=== PATIENT | male | born 1940 | race Caucasian/White ===

== ENCOUNTER 2017-04-05 16:35 | Inpatient (IN) ==
[2017-04-05] MEDS: APIXABAN 5 MG TABLET PO SCH (19:54)
[2017-04-05] MEDS: Psyllium 1 PACKET POWD.PACK PO SCH (19:57)
[2017-04-05] MEDS: ALFUZOSIN 10 MG PO SCH (19:57)
[2017-04-06 05:13] LABS: Basophils % 0.1 %; Eosinophils # 0.4 K/mcL (0.0-0.6); Eosinophils % 3.7 %; Hematocrit 48.5 % (35.3-44.9); Hemoglobin 17.3 g/dL (11.5-15.4); Immature Granulocytes % 0.4 % (0-4); Lymphocytes # 2.1 K/mcL (0.6-4.6); Lymphocytes % 21.7 %; Mean Corpuscular HGB Conc 35.7 g/dL (31.6-35.5); Mean Corpuscular Hemoglobin 29.4 pg (28.0-33.3); Mean Corpuscular Volume 82.5 fL (83.0-100.0); Mean Platelet Volume 10.4 fL (9.4-12.4); Monocytes # 1.1 K/mcL (0.0-1.3); Monocytes % 11.6 %; Neutrophils # 5.9 K/mcL (1.6-8.9); Platelet Count 210 K/mcL (140-400); Red Blood Count 5.88 M/mcL (3.82-4.97); Red Cell Distribution Width 14.7 % (11.5-14.5); Segmented Neutrophils % 62.5 %
[2017-04-06 05:19] LABS: INR 1.5; Prothrombin Time 16.8 Seconds (9.4-12.1)
[2017-04-06 05:23] LABS: Activated Partial Thrombo Time 36.7 Seconds (26.0-36.0)
[2017-04-06 05:27] LABS: BUN/Creatinine Ratio 13 (6-26); Blood Urea Nitrogen 14 mg/dL (7-20); Calcium 9.1 mg/dL (8.6-10.8); Carbon Dioxide 27 mEq/L (19-29); Chloride 104 mEq/L (98-109); Glucose 111 mg/dL (70-99); Osmolality,Calculated 291 (280-300); Potassium 3.5 mEq/L (3.5-4.5); Sodium 140 mEq/L (136-145); eGFR For African Americans > 60 (> 60); eGFR For Non-African Americans 51 (> 60)
[2017-04-06] MEDS: APIXABAN 5 MG TABLET PO SCH ×2 (08:40→20:48)
[2017-04-06] MEDS: Finasteride 5 MG TABLET PO SCH (08:40)
--- NOTE | 2017-04-06 15:09 | Internal Med History&Physical ---
Date of Encounter: 04/06/17 Time of Encounter: 15:07 Assessment and Plan (1) CVA (cerebral vascular accident) Current visit: Yes Status: Acute Patient is here for rehabilitation status post CVA.x Internal Medicine - H&P: HPI Chief complaint: Patient transferred here for CVA. Admitted From: Hospital to Hospital Transfer Plans for Post Hospital Care: Home History of present illness: Mr. FERNÁNDEZ is a 76 year old male Past Med Surg Social Fam HX - Past Medical History Medical history: atrial fibrillation, CVA, hyperlipidemia, hypertension, other Psychiatric history: no psych history - Social History Smoking Status: Former smoker Smokeless Tobacco Status: No Alcohol use: none Drug use: none - Family History Mother History Unknown: Yes Adopted: No Living Status: Age at : 28 Cause of : CHILDBIRTH Internal Medicine - H&P: Meds Alfuzosin HCl 10 mg PO HS 04/05/17 [History] Apixaban [Eliquis] 5 mg PO BID 04/05/17 [History] Atorvastatin [Lipitor] 40 mg PO HS 04/05/17 [History] Diltiazem [Cardizem] 30 mg PO Q6HR 04/05/17 [History] Finasteride [Proscar] 5 mg PO DAILY 04/05/17 [History] Metoprolol [Lopressor] 25 mg PO BID 04/05/17 [History] Omeprazole [PriLOSEC] 20 mg PO BIDAC 04/05/17 [History] Psyllium [Metamucil Fiber Singles Packet] 1 packet PO HS 04/05/17 [History] Allergies No Known Allergies Allergy (Verified 04/05/17 16:42) All Systems PM: A 10-system review of systems was performed and is negative for pertinent findings except as documented above in the HPI. - Constitutional Vitals: Temp Pulse Resp BP Pulse Ox 98.1 F 70 16 115/72 94 04/06/17 13:12 04/06/17 13:33 04/06/17 13:33 04/06/17 13:33 04/06/17 13:33 General appearance: Present: pleasant, no acute distress - Head Head exam: Present: atraumatic, normal inspection, normocephalic - Neck Neck exam general surgery: Present: supple, trachea midline. Absent: lymphadenopathy - Respiratory Respiratory exam: Present: CTAB. Absent: accessory muscle use, rales, rhonchi, wheezes - Cardiovascular Cardiovascular exam: Present: RRR, +S1, +S2. Absent: diastolic murmur, gallop, rubs, systolic murmur - GI/Abdominal GI/Abdominal exam: Present: normal bowel sounds, soft, no peritoneal signs. Absent: distended, tenderness - Neurological Exam Neurological exam: Present: facial droop (Very minimal changes. I did not see much unevenness) Internal Med - H&P Results - Labs CBC & Chem 7: 04/06/17 05:00 04/06/17 05:00 Labs: Short CBC 04/06/17 Range/Units 05:00 WBC 9.5 (4.3-11.1) K/mcL Hgb 17.3 H (11.5-15.4) g/dL Hct 48.5 H (35.3-44.9) % Plt Count 210 (140-400) K/mcL Neutrophils # 5.9 (1.6-8.9) K/mcL BMP 04/06/17 05:00 Sodium 140 Potassium 3.5 Chloride 104 Carbon Dioxide 27 BUN 14 Creatinine 1.04 Glucose 111 H Calcium 9.1 Lab looks good
--- NOTE | 2017-04-06 16:12 | Electrocardiograph Report ---
[place] [id number] Test Date: 2017-04-06 Pat Name: FELIX FERNÁNDEZ Department: 2001 Room: 109 Gender: M Floral Merchandiser: Phil : 1940 Requested By: Kavon Parikh Order Number: [id number] Reading MD: Medina Clinton Measurements Intervals [place] Rate: 83 P: WA: 0 QRS: -19 QRSD: 102 T: 163 QT: 352 QTc: 392 Interpretive Statements ATRIAL FIBRILLATION NONSPECIFIC ST & T-WAVE ABNORMALITY Electronically Signed On 04-06-2017 16:10:44 EDT by Medina Clinton
[2017-04-06] MEDS: Psyllium 1 PACKET POWD.PACK PO SCH (20:50)
[2017-04-06] MEDS: ALFUZOSIN 10 MG PO SCH (20:50)
[2017-04-06] MEDS: Acetaminophen 325 MG TABLET PO PRN (23:16)
[2017-04-07] MEDS: Finasteride 5 MG TABLET PO SCH (08:40)
[2017-04-07] MEDS: APIXABAN 5 MG TABLET PO SCH ×2 (08:40→20:57)
[2017-04-07] MEDS: Acetaminophen 325 MG TABLET PO PRN (08:40)
--- NOTE | 2017-04-07 11:24 | Internal Med Progress Note ---
Date of Encounter: 04/07/17 Time of Encounter: 11:22 - Assessment and plan (1) CVA (cerebral vascular accident) Current Visit: Yes Status: Acute Assessment and plan: Patient's here for PT OT TR and speech. Qualifiers: CVA mechanism: thrombosis Precerebral and cerebral artery: middle cerebral artery Laterality of affected vessel: left Qualified Code(s): I63.312 - Cerebral infarction due to thrombosis of left middle cerebral artery - Time Spent With Patient less than 15 minutes - Subjective Interval history: Patient is started with therapy today cooperated. He does have some complaints of vertigo I am going to start some medication for that. I would not doing well - Constitutional Vitals: Temp Pulse Resp BP Pulse Ox 98.4 F 68 16 133/94 96 04/07/17 07:00 04/07/17 07:00 04/07/17 07:00 04/07/17 07:00 04/07/17 07:00 General appearance: Present: pleasant, no acute distress - Head Head exam: Present: atraumatic, normal inspection, normocephalic - Neck Neck exam general surgery: Present: supple, trachea midline. Absent: lymphadenopathy - Respiratory Respiratory exam: Present: CTAB. Absent: accessory muscle use, rales, rhonchi, wheezes - Cardiovascular Cardiovascular exam: Present: RRR, +S1, +S2. Absent: diastolic murmur, gallop, rubs, systolic murmur Internal Medicine: Result - Labs CBC & Chem 7: 04/06/17 05:00 04/06/17 05:00 Labs: Lab is stable - ABG Interpretation ABG results: PT/INR, D-dimer PT 16.8 Seconds (9.4-12.1) H 04/06/17 05:00 Consult Discharge Plan - Plan Referrals: NONE,PCP [Primary Care Provider] -
[2017-04-07] MEDS: Psyllium 1 PACKET POWD.PACK PO SCH (20:57)
[2017-04-07] MEDS: ALFUZOSIN 10 MG PO SCH (20:58)
[2017-04-08] MEDS: Acetaminophen 325 MG TABLET PO PRN ×2 (00:56→20:38)
[2017-04-08] MEDS: Finasteride 5 MG TABLET PO SCH (08:26)
[2017-04-08] MEDS: APIXABAN 5 MG TABLET PO SCH ×2 (08:27→20:36)
--- NOTE | 2017-04-08 11:26 | Internal Med Progress Note ---
Date of Encounter: 04/08/17 Time of Encounter: 11:24 - Assessment and plan (1) CVA (cerebral vascular accident) Current Visit: Yes Status: Acute Assessment and plan: CVA and I think that the vertigo was caused by the CVA. We will see if the Antivert does anything Qualifiers: CVA mechanism: thrombosis Precerebral and cerebral artery: middle cerebral artery Laterality of affected vessel: left Qualified Code(s): I63.312 - Cerebral infarction due to thrombosis of left middle cerebral artery - Time Spent With Patient less than 15 minutes - Subjective Interval history: Patient is started with therapy today cooperated. He does have some complaints of vertigo I am going to start some medication for that. I would not doing well - Constitutional Vitals: Temp Pulse Resp BP Pulse Ox 97.6 F 60 16 134/89 97 04/08/17 07:39 04/08/17 08:27 04/08/17 07:39 04/08/17 07:39 04/08/17 07:39 General appearance: Present: pleasant, no acute distress - Head Head exam: Present: atraumatic, normal inspection, normocephalic - Neck Neck exam general surgery: Present: supple, trachea midline. Absent: lymphadenopathy - Respiratory Respiratory exam: Present: CTAB. Absent: accessory muscle use, rales, rhonchi, wheezes - Cardiovascular Cardiovascular exam: Present: RRR, +S1, +S2. Absent: diastolic murmur, gallop, rubs, systolic murmur - Neurological Exam Neurological exam: Present: CN II-XII intact, oriented X3, no focal deficits. Absent: pronater drift, facial droop, speech deficit Additional comments: Reports no improvement vertigo with the Antivert. Internal Medicine: Result - Labs CBC & Chem 7: 04/06/17 05:00 04/06/17 05:00 Labs: Lab is stable - ABG Interpretation ABG results: PT/INR, D-dimer PT 16.8 Seconds (9.4-12.1) H 04/06/17 05:00 Consult Discharge Plan - Plan Referrals: NONE,PCP [Primary Care Provider] -
[2017-04-08] MEDS: Psyllium 1 PACKET POWD.PACK PO SCH (20:37)
[2017-04-08] MEDS: ALFUZOSIN 10 MG PO SCH (20:37)
[2017-04-09 06:00] LABS: Basophils % 0.1 %; Eosinophils # 0.4 K/mcL (0.0-0.6); Eosinophils % 4.9 %; Hematocrit 46.5 % (37.5-50.1); Hemoglobin 16.3 g/dL (12.9-16.9); Immature Granulocytes % 0.6 % (0-4); Lymphocytes % 22.1 %; Mean Corpuscular HGB Conc 35.1 g/dL (31.6-35.5); Mean Corpuscular Hemoglobin 29.7 pg (28.0-33.3); Mean Corpuscular Volume 84.9 fL (83.0-100.0); Mean Platelet Volume 11.2 fL (9.4-12.4); Monocytes # 1.1 K/mcL (0.0-1.3); Neutrophils # 5.4 K/mcL (1.6-8.9); Platelet Count 190 K/mcL (140-400); Red Blood Count 5.48 M/mcL (4.19-5.50); Red Cell Distribution Width 15.4 % (11.5-14.5); Segmented Neutrophils % 60.3 %
[2017-04-09 06:14] LABS: BUN/Creatinine Ratio 11 (6-26); Blood Urea Nitrogen 11 mg/dL (8-26); Calcium 8.9 mg/dL (8.6-10.8); Carbon Dioxide 26 mEq/L (19-29); Chloride 107 mEq/L (98-109); Glucose 94 mg/dL (70-99); Osmolality,Calculated 291 (280-300); Potassium 3.6 mEq/L (3.5-4.5); Sodium 141 mEq/L (136-145); eGFR For African Americans > 60 (> 60); eGFR For Non-African Americans > 60 (> 60)
[2017-04-09] MEDS: Finasteride 5 MG TABLET PO SCH (08:50)
[2017-04-09] MEDS: APIXABAN 5 MG TABLET PO SCH ×2 (08:50→20:19)
--- NOTE | 2017-04-09 09:38 | Internal Med Progress Note ---
Date of Encounter: 04/09/17 Time of Encounter: 10:24 - Assessment and plan (1) Cerebral infarction involving right cerebellar artery Current Visit: Yes Status: Acute Assessment and plan: 76-year-old gentleman with known history of atrial fibrillation sustained acute right cerebellar infarct with mass effect and is now improved with therapy. He still needs a walker to assist with ambulation and gait belt and standby assistance for safety because of his ataxia and instability of balance. He continues to improve. He has troubles when he bends over such as therapy in the garden. Continue with controlled blood pressure, controlling defibrillation and continue anticoagulation with Eliquis (2) Atrial fibrillation Current Visit: Yes Status: Acute Assessment and plan: Anticoagulated continues with rate controlled atrial fibrillation. He is anticoagulated. He denies any angina or CHF findings. Qualifiers: Atrial fibrillation type: chronic Qualified Code(s): I48.2 - Chronic atrial fibrillation (3) Anticoagulated Current Visit: Yes Status: Acute Assessment and plan: Anticoagulated with Eliquis for his atrial fibrillation and history of cerebellar CVA. No complications noted. (4) Hypertension Current Visit: Yes Status: Chronic Assessment and plan: Long-standing history of hypertension. Blood pressure is controlled. Qualifiers: Hypertension type: essential hypertension Qualified Code(s): I10 - Essential (primary) hypertension (5) Ashton catheter in place on admission Current Visit: Yes Status: Acute Assessment and plan: He has had a Ashton catheter in place since transfer from [facility] and apparently we were told not to remove it. I need to look at his old records to see why this needs to remain. - Subjective Interval history: Patient denies any acute symptoms currently. He denies chest pain, palpitations , irregular heartbeat, nausea, vomiting or GI issues. He has an indwelling Ashton catheter that we were told needs to remain. He thinks is getting better. Therapy reports that he still needs standby assistance and gait belt for balance issues when he is ambulating with his walker. He has difficulties when he is bending over with regards to ataxia. - Constitutional Vitals: Temp Pulse Resp BP Pulse Ox 97.4 F L 69 14 134/93 96 04/09/17 07:34 04/09/17 07:34 04/09/17 07:34 04/09/17 07:34 04/09/17 07:34 General appearance: Present: A&O X 3, pleasant, no acute distress - Respiratory Respiratory exam: Present: CTAB - Cardiovascular Cardiovascular exam: Present: irregular rhythm, +S1, +S2. Absent: systolic murmur Additional comments: Irregularly irregular rhythm with controlled rate - GI/Abdominal GI/Abdominal exam: Absent: tenderness - Extremities Exam Extremities exam: Absent: calf tenderness, pedal edema - Neurological Exam Neurological exam: Present: CN II-XII intact, oriented X3, strengths equal and symetr throughout. Absent: facial droop, speech deficit Additional comments: He has mild ataxia when ambulating. He is using a walker. He takes wide-based turns. Internal Medicine: Result - Labs CBC & Chem 7: 04/09/17 05:35 04/09/17 05:35 Labs: Short CBC 04/09/17 Range/Units 05:35 WBC 9.0 (4.3-11.1) K/mcL Hgb 16.3 (12.9-16.9) g/dL Hct 46.5 (37.5-50.1) % Plt Count 190 (140-400) K/mcL Neutrophils # 5.4 (1.6-8.9) K/mcL BMP 04/09/17 05:35 Sodium 141 Potassium 3.6 Chloride 107 Carbon Dioxide 26 BUN 11 Creatinine 0.98 Glucose 94 Calcium 8.9 Labs have been reviewed and basically unremarkable. - ABG Interpretation ABG results: PT/INR, D-dimer PT 16.8 Seconds (9.4-12.1) H 04/06/17 05:00 Consult Discharge Plan - Plan Referrals: NONE,PCP [Primary Care Provider] -
[2017-04-09] MEDS: ALFUZOSIN 10 MG PO SCH (20:22)
[2017-04-09] MEDS: Psyllium 1 PACKET POWD.PACK PO SCH (20:33)
[2017-04-09] MEDS: Acetaminophen 325 MG TABLET PO PRN (23:02)
[2017-04-10] MEDS: Finasteride 5 MG TABLET PO SCH (09:13)
[2017-04-10] MEDS: APIXABAN 5 MG TABLET PO SCH ×2 (09:13→20:56)
--- NOTE | 2017-04-10 16:19 | Internal Med Progress Note ---
Date of Encounter: 04/10/17 Time of Encounter: 16:17 - Assessment and plan (1) Cerebral infarction involving right cerebellar artery Current Visit: Yes Status: Acute Assessment and plan: Continue physical therapy for his CVA and balance problems. Still requires use of a walker and assistance. He will see Dr. Hardy tomorrow (2) Atrial fibrillation Current Visit: Yes Status: Acute Assessment and plan: Anticoagulated. Controlled rate. No angina or CHF. Qualifiers: Atrial fibrillation type: chronic Qualified Code(s): I48.2 - Chronic atrial fibrillation (3) Anticoagulated Current Visit: Yes Status: Acute (4) Hypertension Current Visit: Yes Status: Chronic Assessment and plan: Blood pressure is under adequate control. No hypertensive symptoms. Qualifiers: Hypertension type: essential hypertension Qualified Code(s): I10 - Essential (primary) hypertension (5) Ashton catheter in place on admission Current Visit: Yes Status: Acute Assessment and plan: Marital by issue not to take the Ashton out. He gives me a history of urinary retention in the past. He was to have prostate "shaving" and he told me that his PSA went from the 8 range down to the 4 range. He now has blood in his catheter. We will have him see urology tomorrow to help decide to pull it or not. - Subjective Interval history: Patient thinks he is doing well. He said he had a spell in therapy yesterday when he became dizzy when he bent over. He denies chest pain, palpitations, irregular heartbeat. When he came to us from [facility] had a Ashton in place and we were told not to take it out. Today he is giving a history of prostate enlargement, previous plans at the [facility] to have his prostate "shaved" but was never done. He has not seen a urologist in a while. He does have some retention of urine at times as he relates sometimes it is 600 sometimes 900ml in the past. We will have him see urologist Dr. Mathews tomorrow. - Constitutional Vitals: Temp Pulse Resp BP Pulse Ox 97.6 F 75 16 149/92 94 04/10/17 07:33 04/10/17 07:33 04/10/17 07:33 04/10/17 07:33 04/10/17 07:33 General appearance: Present: A&O X 3, pleasant, no acute distress - Respiratory Respiratory exam: Present: CTAB - Cardiovascular Cardiovascular exam: Present: irregular rhythm, +S1, +S2. Absent: systolic murmur - GI/Abdominal GI/Abdominal exam: Present: soft. Absent: tenderness - Extremities Exam Extremities exam: Absent: calf tenderness, pedal edema - Neurological Exam Additional comments: I believe he has some cognitive decline. I did not do a full Mini-Mental status examination, but he thinks he was told he was going home tomorrow not Sunday. Sometimes gets information wrong. He was able to tell me about his urologist problem in the past though. Internal Medicine: Result - Labs CBC & Chem 7: 04/09/17 05:35 04/09/17 05:35 - ABG Interpretation ABG results: PT/INR, D-dimer PT 16.8 Seconds (9.4-12.1) H 04/06/17 05:00 Consult Discharge Plan - Plan Referrals: NONE,PCP [Primary Care Provider] -
[2017-04-10 17:16] LABS: Bilirubin,Urine Negative (Negative); Blood,Urine Large (Negative); Clarity,Urine Cloudy (Clear); Color,Urine Red (Yellow); Ketones,Urine Negative (Negative); Leukocyte Esterase,Urine Trace (Negative); Nitrite,Urine Negative (Negative); PH,Urine 6.5 pH Units (5.0-8.0); Protein,Urine >=300 mg/dL (Neg-Trace); Specific Gravity,Urine >= 1.030 (1.010-1.025); Urobilinogen,Urine Normal (Normal)
[2017-04-10 17:18] LABS: Glucose,Urine (UA) Normal (Normal)
[2017-04-10] MEDS: Psyllium 1 PACKET POWD.PACK PO SCH (20:56)
[2017-04-10] MEDS: ALFUZOSIN 10 MG PO SCH (20:56)
[2017-04-10] MEDS: Acetaminophen 325 MG TABLET PO PRN (23:28)
[2017-04-11] MEDS: APIXABAN 5 MG TABLET PO SCH ×2 (08:44→20:25)
[2017-04-11] MEDS: Finasteride 5 MG TABLET PO SCH (08:44)
--- NOTE | 2017-04-11 13:38 | Internal Med Progress Note ---
Date of Encounter: 04/11/17 Time of Encounter: 13:36 - Assessment and plan (1) Cerebral infarction involving right cerebellar artery Current Visit: Yes Status: Acute Assessment and plan: Recuperating well from his cerebellar infarct affecting his gait and balance. We will continue with therapies. He is showing improvement. Continue his walker. (2) Atrial fibrillation Current Visit: Yes Status: Acute Assessment and plan: Chronic atrial fibrillation without acute angina or CHF. Anticoagulated. He is rate controlled. Qualifiers: Atrial fibrillation type: chronic Qualified Code(s): I48.2 - Chronic atrial fibrillation (3) Anticoagulated Current Visit: Yes Status: Acute (4) Hypertension Current Visit: Yes Status: Chronic Assessment and plan: Blood pressure is under adequate control. Occasionally elevated them back to normal Qualifiers: Hypertension type: essential hypertension Qualified Code(s): I10 - Essential (primary) hypertension (5) Ashton catheter in place on admission Current Visit: Yes Status: Acute Assessment and plan: He was to see the urologist today to help decide about pulling the catheter. He does have blood in the urine and culture is pending. Unfortunately, urologist had to cancel this afternoon due to an emergency. We will plan to pull the catheter, frequent bladder scans checking for retention and straight catheter if needed. - Subjective Interval history: Patient thinks he is doing well. Therapy say he is advancing nicely and better ambulation and better balance. He looks forward to going home in a few days. He denies a cardiac type chest pain, palpitations, dyspnea, GI or symptoms. Currently has a slowly catheter in place. He did state that he does get discomfort in left lateral chest wall in a small localized area, "I have had this for many years and it does not change". He states it occurs when he overexerts. He has seen cardiology. - Constitutional Vitals: Temp Pulse Resp BP Pulse Ox 97.4 F L 74 18 142/97 95 04/11/17 07:10 04/11/17 07:10 04/11/17 07:10 04/11/17 07:10 04/11/17 07:10 General appearance: Present: A&O X 3, pleasant, no acute distress - Respiratory Respiratory exam: Present: CTAB - Cardiovascular Cardiovascular exam: Present: irregular rhythm, +S1, +S2. Absent: systolic murmur - Extremities Exam Extremities exam: Absent: calf tenderness, pedal edema, tenderness - Neurological Exam Neurological exam: Present: CN II-XII intact, oriented X3. Absent: normal gait (He still needs assistance with his gait but much better. Walks rather quickly with his walker. He did not show any instability when I saw him), facial droop , speech deficit Internal Medicine: Result - Labs CBC & Chem 7: 04/09/17 05:35 04/09/17 05:35 Labs: Urine 04/10/17 Range/Units 16:55 Urine Color Red A (Yellow) Urine Clarity Cloudy A (Clear) Urine pH 6.5 (5.0-8.0) pH Units Ur Specific [place] >= 1.030 H (1.010-1.025) Urine Protein >=300 H (Neg-Trace) mg/dL Urine Glucose (UA) Normal (Normal) mg/dL - ABG Interpretation ABG results: PT/INR, D-dimer PT 16.8 Seconds (9.4-12.1) H 04/06/17 05:00 Consult Discharge Plan - Plan Referrals: NONE,PCP [Primary Care Provider] -
--- NOTE | 2017-04-11 14:31 | Psychological Evaluation ---
Date of Encounter: 04/11/17 Time of Encounter: 11:30 History of Present Illness History of present illness: Mr. OTERO is a 76 year old male admitted to [facility] from outside hospital following a right CVA with resultant impairment in his gait and balance. He was seen on this date to assess his current cognitive and emotional functioning. Past Medical History Medical history: Significant for atrial fibrillation, hyperlipidemia and hypertension. - Psychiatric History Additional Psychiatric History: There is no history of psychiatric hospitalization or mental health treatment. He stated that he has a history of feeling anxious but tries to "control it" by using positive self-statements and "going with the flow". There is no family history of psychiatric or mental health issues. Home Medications and Allergies Alfuzosin HCl 10 mg PO HS 04/05/17 [History] Apixaban [Eliquis] 5 mg PO BID 04/05/17 [History] Atorvastatin [Lipitor] 40 mg PO HS 04/05/17 [History] Diltiazem [Cardizem] 30 mg PO Q6HR 04/05/17 [History] Finasteride [Proscar] 5 mg PO DAILY 04/05/17 [History] Metoprolol [Lopressor] 25 mg PO BID 04/05/17 [History] Omeprazole [PriLOSEC] 20 mg PO BIDAC 04/05/17 [History] Psyllium [Metamucil Fiber Singles Packet] 1 packet PO HS 04/05/17 [History] Allergies No Known Allergies Allergy (Verified 04/05/17 16:42) Social History - Social History Social History: Mr. Otero has been to his second for 38 years. They have a 38-year -old daughter together. His has 3 sons, one of whom has an 8-year-old son which Mr. Otero and his are raising. Mr. Otero also has two sons from his first marriage but stated that he has had no contact with his sons for 25 years. He commented "it's best that way" since the divorce. Mr. 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 He also served 4 years in the [employer]. 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 In the evenings, he watches TV. Mr. Otero reported that his social support system consists of his and their daughter. - Tobacco Use Smoking Status: Former smoker - Alcohol Use Alcohol Use: none Cognitive/Emotional Assessment - Cognitive Ability Additional Findings: Mr. Otero was alert, attentive and fully oriented. Speech was clear, fluent and effective. Thought processes were logical, coherent and goal-directed. There were no signs of delusional ideation or perceptual disturbances. He was able to do rote but not simple mental arithmetic. He performed adequately on a measure of confrontational naming and auditory comprehension (able to follow 2- step complex command). Of note, he has a hearing impairment and does not use hearing aids. On a measure of delayed verbal recall, he performed within the severely impaired range. He exhibited problems with encoding, storage and retrieval of new information. His performance was assisted with recognition ( multiple choice) and category cueing. Mr. Otero presented as aware of his cognitive strengths and weaknesses. He was given suggestions for compensatory strategies for his memory. - Emotional Status Additional Findings: Mr. Otero was pleasant, friendly and talkative. He denied any changes with his appetite or sleep. He also denied any current pain. Mood was euthymic. Affect was appropriate in range and intensity and congruent with mood. He is scheduled to be discharged home this Sunday. Assessment & Plan - Treatment Plan Treatment Plan/Recommendations: Mr. Otero appears to be functioning well from a cognitive and emotional perspective. He was given compensatory strategies (development of a daily routine, use of verbal repetition, writing notes) to aid in his memory/recall of new information. There are no recommendations for any additional psychological interventions at this time. Procedures - Session Time Session Start Time: 11:30 Session Stop Time: 12:00
[2017-04-11] MEDS: Psyllium 1 PACKET POWD.PACK PO SCH (20:25)
[2017-04-11] MEDS: Acetaminophen 325 MG TABLET PO PRN (23:17)
[2017-04-11] MEDS: ALFUZOSIN 10 MG PO SCH (23:19)
[2017-04-12] MEDS: APIXABAN 5 MG TABLET PO SCH ×2 (07:56→21:44)
[2017-04-12] MEDS: Finasteride 5 MG TABLET PO SCH (07:56)
--- NOTE | 2017-04-12 11:12 | Internal Med Progress Note ---
Date of Encounter: 04/12/17 Time of Encounter: 11:10 - Assessment and plan (1) Cerebral infarction involving right cerebellar artery Current Visit: Yes Status: Acute Assessment and plan: Patient is ambulating well with his walker. He is having a trial community evaluation at [facility] with his grandchildren today. Plan for discharge tomorrow. (2) Atrial fibrillation Current Visit: Yes Status: Acute Assessment and plan: Chronic atrial fibrillation without angina or CHF. He is rate controlled. He is anticoagulated. Qualifiers: Atrial fibrillation type: chronic Qualified Code(s): I48.2 - Chronic atrial fibrillation (3) Anticoagulated Current Visit: Yes Status: Acute (4) Hypertension Current Visit: Yes Status: Chronic Assessment and plan: Blood pressure is under adequate control. Qualifiers: Hypertension type: essential hypertension Qualified Code(s): I10 - Essential (primary) hypertension (5) Ashton catheter in place on admission Current Visit: Yes Status: Inactive (6) Urinary retention Current Visit: Yes Status: Acute Assessment and plan: His Ashton catheter was pulled. He is having trouble with urination. Last night he can only urinate 20 mL and was cathetered for 440. Currently he is retaining 360 mL. At home he states that he catheterizes himself when needed. We will continue to frequently toilet and monitor here. - Subjective Interval history: Patient is no acute symptoms of chest pain, palpitations, GI or symptoms other than difficulty with urination. He has had to be straight cathetered in middle of night for 440 mL after only urinating 20. Currently he has 360 mL retained and he is currently trying to urinate. He denies any abdominal pain with this. Apparently he does straight catheter at home on a "prn" basis. He has been ambulating up and down the hallways at a fairly fast clip. He is going out to [facility] for a trial community evaluation with his grandchildren today. - Constitutional Vitals: Temp Pulse Resp BP Pulse Ox 97.8 F 70 18 144/86 95 04/12/17 07:23 04/12/17 07:23 04/12/17 07:23 04/12/17 07:23 04/12/17 07:23 General appearance: Present: A&O X 3, pleasant, no acute distress - Respiratory Respiratory exam: Present: CTAB - Cardiovascular Cardiovascular exam: Present: irregular rhythm, +S1, +S2 - Extremities Exam Extremities exam: Absent: calf tenderness, pedal edema - Neurological Exam Neurological exam: Present: CN II-XII intact, normal gait (With a walker) Internal Medicine: Result - Labs CBC & Chem 7: 04/09/17 05:35 04/09/17 05:35 Labs: Urine culture showed no bacterial growth - ABG Interpretation ABG results: PT/INR, D-dimer PT 16.8 Seconds (9.4-12.1) H 04/06/17 05:00 Consult Discharge Plan - Plan Referrals: NONE,PCP [Primary Care Provider] -
[2017-04-12] MEDS: Psyllium 1 PACKET POWD.PACK PO SCH (21:45)
[2017-04-12] MEDS: ALFUZOSIN 10 MG PO SCH (21:46)
[2017-04-13] MEDS: Acetaminophen 325 MG TABLET PO PRN (00:11)
--- NOTE | 2017-04-13 08:32 | Discharge Summary ---
Date of Encounter: 04/13/17 Time of Encounter: 08:29 - Discharge Diagnosis (1) Cerebral infarction involving right cerebellar artery Priority: Primary Status: Acute Comments: Patient is a 76-year-old male with known history of A. fib, hypertension, urinary retention who started having symptoms on Sunday03/26/17 when he was not feeling well. He felt dizzy and nauseous. He was taken to [facility] where he was diagnosed as having atrial fibrillation and was started on Eliquis and discharged to home on the next day. On the following day he had an unwitnessed fall and felt weak in his legs and he was taken to [facility] where he was diagnosed with a tentative diagnosis of pneumonia , vertigo and acute cholecystitis and started on Levaquin. His dizziness worsened and MRI revealed that he actually had an acute to subacute stroke in the right cerebellum with mass effect and midline shift and he was transferred to [facility]. At [facility] his workup included CTA of the neck which showed 3 mm outpouching of the proximal right cervical internal carotid artery which may represent a focal ulcerative plaque versus a tiny pseudoaneurysm. Moderately tortuous cervical internal carotid arteries with kinking and mild narrowing of the left cervical internal carotid artery. No large vessel occlusion through the modoc of [place]. 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 Gallbladder ultrasound was normal except for gallbladder polyps; chest x-ray was without acute change or infiltrate. He was admitted to [facility] due to his ataxia and instability of balance problems. He had consultations PT, OT, RT , speech therapy,psychologist, and Dr. Jill Moss our PM&R specialist. Patient advanced very nicely with his therapies and by time of discharge he was ambulating well with his walker, showed much improved control of his balance and showed safe control of his ADLs. He was continued on his anticoagulation with Eliquis, control of his blood pressure and rate control of his atrial fibrillation. He is ready for discharge today. We will arrange for follow-up with Dr. Mckenzie in [place]. (2) Atrial fibrillation Priority: Secondary Status: Acute Comments: By history patient has relatively new onset atrial fibrillation. He sustained his CVA as above. He had been placed on Eliquis and that was continued without complication. He has been rate controlled, no angina, no CHF findings. Qualifiers: Atrial fibrillation type: chronic Qualified Code(s): I48.2 - Chronic atrial fibrillation (3) Anticoagulated Priority: Secondary Status: Acute Comments: Anticoagulated with Eliquis without complication (4) Hypertension Priority: Secondary Status: Chronic Comments: He has a history of chronic hypertension. Generally his pressures have been controlled in our unit. Occasionally it would be mildly elevated to the 150s to 160s systolic and then resume back to normal. He will follow-up with Dr. Mckenzie regarding outpatient management. Qualifiers: Hypertension type: essential hypertension Qualified Code(s): I10 - Essential (primary) hypertension (5) Urinary retention Priority: Secondary Status: Chronic Comments: Patient has had troubles with urinary retention. When he came to our facility from [facility] we were told to keep the Ashton catheter in place. However on further questioning of the patient, he states that he does self catheterizations at home on a prn basis. We tried to arrange consultation with our urologist, but unexpectedly that clinic was canceled on that day and he did not see urology. We pulled his Ashton catheter, we monitored his urine output and did bladder scanning. He continues to retain 400-600 mL's and requiring catheterization. He states he feels comfortable doing this at home as he has done so in the past. I recommended that he follow-up with Dr. Mckenzie or a urologist as an outpatient. At one time he had blood in his catheter bag, the culture was negative and it was suspected from his anticoagulation and irritation from his Ashton - Discharge Medications Prescriptions: amLODIPine [Norvasc] 5 mg PO DAILY #30 tablet Atorvastatin [Lipitor] 40 mg PO HS #30 tab Losartan Potassium [Cozaar] 50 mg PO BID #30 tab Home Medications: Alfuzosin HCl 10 mg PO HS 04/05/17 [History] Apixaban [Eliquis] 5 mg PO BID 04/05/17 [History] Finasteride [Proscar] 5 mg PO DAILY 04/05/17 [History] Metoprolol [Lopressor] 25 mg PO BID 04/05/17 [History] Omeprazole [PriLOSEC] 20 mg PO BIDAC 04/05/17 [History] Psyllium [Metamucil Fiber Singles Packet] 1 packet PO HS 04/05/17 [History] Acetaminophen [Tylenol] 650 mg PO Q6HR PRN tab 08/04/17 [Rx] Atorvastatin [Lipitor] 40 mg PO HS #30 tab 04/13/17 [Rx] Losartan Potassium [Cozaar] 50 mg PO BID #30 tab 04/13/17 [Rx] amLODIPine [Norvasc] 5 mg PO DAILY #30 tablet 04/13/17 [Rx] Allergies/Adverse Reactions: Allergies No Known Allergies Allergy (Verified 04/05/17 16:42) Procedures/tests Complete & Pending: Lab Results 04/06/17 04/06/17 04/06/17 Range/Units 05:00 05:00 05:00 WBC 9.5 (4.3-11.1) K/mcL RBC 5.88 H (3.82-4.97) M/mcL Hgb 17.3 H (11.5-15.4) g/dL Hct 48.5 H (35.3-44.9) % MCV 82.5 L (83.0-100.0) fL MCH 29.4 (28.0-33.3) pg MCHC 35.7 H (31.6-35.5) g/dL RDW 14.7 H (11.5-14.5) % Plt Count 210 (140-400) K/mcL MPV 10.4 (9.4-12.4) fL Immature Gran % 0.4 (0-4) % Seg Neutrophils % 62.5 % Lymphocytes % 21.7 % Monocytes % 11.6 % Eosinophils % 3.7 % Basophils % 0.1 % Neutrophils # 5.9 (1.6-8.9) K/mcL Lymphocytes # 2.1 (0.6-4.6) K/mcL Monocytes # 1.1 (0.0-1.3) K/mcL Eosinophils # 0.4 (0.0-0.6) K/mcL Basophils # 0.0 (0.0-0.2) K/mcL PT 16.8 H (9.4-12.1) Seconds INR 1.5 APTT 36.7 H (26.0-36.0) Seconds Sodium 140 (136-145) mEq/L Potassium 3.5 (3.5-4.5) mEq/L Chloride 104 (98-109) mEq/L Carbon Dioxide 27 (19-29) mEq/L BUN 14 (7-20) mg/dL Creatinine 1.04 (0.57-1.11) mg/dL Est GFR ( Amer) > 60 (> 60) Est GFR (Non-Af Amer) 51 L (> 60) BUN/Creatinine Ratio 13 (6-26) Glucose 111 H (70-99) mg/dL Calculated Osmolality 291 (280-300) Calcium 9.1 (8.6-10.8) mg/dL Urine Color (Yellow) Urine Clarity (Clear) Urine pH (5.0-8.0) pH Units Ur Specific [place] (1.010-1.025) Urine Protein (Neg-Trace) mg/dL Urine Glucose (UA) (Normal) mg/dL Urine Ketones (Negative) mg/dL Urine Blood (Negative) Urine Nitrite (Negative) Urine Bilirubin (Negative) Urine Urobilinogen (Normal) mg/dL Ur Leukocyte Esterase (Negative) Urine Microscopic WBC Ur Culture Indicated? (NO) 04/09/17 04/09/17 04/10/17 Range/Units 05:35 05:35 16:55 WBC 9.0 (4.3-11.1) K/mcL RBC 5.48 (3.82-4.97) M/mcL Hgb 16.3 (11.5-15.4) g/dL Hct 46.5 (35.3-44.9) % MCV 84.9 (83.0-100.0) fL MCH 29.7 (28.0-33.3) pg MCHC 35.1 (31.6-35.5) g/dL RDW 15.4 H (11.5-14.5) % Plt Count 190 (140-400) K/mcL MPV 11.2 (9.4-12.4) fL Immature Gran % 0.6 (0-4) % Seg Neutrophils % 60.3 % Lymphocytes % 22.1 % Monocytes % 12.0 % Eosinophils % 4.9 % Basophils % 0.1 % Neutrophils # 5.4 (1.6-8.9) K/mcL Lymphocytes # 2.0 (0.6-4.6) K/mcL Monocytes # 1.1 (0.0-1.3) K/mcL Eosinophils # 0.4 (0.0-0.6) K/mcL Basophils # 0.0 (0.0-0.2) K/mcL PT (9.4-12.1) Seconds INR APTT (26.0-36.0) Seconds Sodium 141 (136-145) mEq/L Potassium 3.6 (3.5-4.5) mEq/L Chloride 107 (98-109) mEq/L Carbon Dioxide 26 (19-29) mEq/L BUN 11 (7-20) mg/dL Creatinine 0.98 (0.57-1.11) mg/dL Est GFR ( Amer) > 60 (> 60) Est GFR (Non-Af Amer) > 60 (> 60) BUN/Creatinine Ratio 11 (6-26) Glucose 94 (70-99) mg/dL Calculated Osmolality 291 (280-300) Calcium 8.9 (8.6-10.8) mg/dL Urine Color Red A (Yellow) Urine Clarity Cloudy A (Clear) Urine pH 6.5 (5.0-8.0) pH Units Ur Specific [place] >= 1.030 H (1.010-1.025) Urine Protein >=300 H (Neg-Trace) mg/dL Urine Glucose (UA) Normal (Normal) mg/dL Urine Ketones Negative (Negative) mg/dL Urine Blood Large H (Negative) Urine Nitrite Negative (Negative) Urine Bilirubin Negative (Negative) Urine Urobilinogen Normal (Normal) mg/dL Ur Leukocyte Esterase Trace H (Negative) Urine Microscopic WBC Test Not Performed Ur Culture Indicated? YES A (NO) - Notes to Outpatient Provider The patient is continuing to have urinary retention requiring self- catheterization. Date of admission: 04/05/17 16:35 Primary care physician: [address] [place] [address] Consults: 04/05/17 16:59 Consult to Occupational Therapy [CONS] Routine Comment: Evaluate, develop and implement POC Reason for Consult: eval and tx Consult to Physical Therapy [CONS] Routine Comment: Evaluate, develop and implement POC Reason for Consult: eval and tx Consult to Recreational Therapy [CONS] Routine Comment: Evaluate, develop and implement POC Consult to Plumber Apprentice [CONS] Routine Reason for SW Consult: eval and tx Consult to Speech Therapy [CONS] Routine Comment: Evaluate, develop and implement POC Reason for Consult: speech impairment Call Completed: Yes 04/10/17 15:24 Consult to Psychology [CONS] Routine Consulting Provider: Juliana Paige Reason for Consult: please eval. Dx CVA Call Completed: No Discharging clinician: Kavon Decker Anticipated date of discharge: 04/13/17 - Patient Status Disposition: Home, Self-Care Condition: Good Functional capacity at discharge: uses cane/walker Overall status at discharge: patient is not back to baseline - Discharge Instructions Follow Up With: Timmy Mckenzie [Other] - 04/20/17 1:30 pm - Diet and Activity Activity: ambulate only with your walker, as per physical therapy Diet: low salt diet Interval History: On day of discharge patient is having no acute symptoms. He denies any chest pain or palpitations, he denies any dyspnea, denies any GI or symptoms other than difficulty with urination and required to be straight cathetered. He is ambulating in the hallways with his walker without difficulty. He feels he is ready to be discharged to home the therapies think he is safe and ready to go home. Hospital course: Mr. FERNÁNDEZ is a 76 year old male with known history of hypertension and new onset atrial fibrillation sustained a cerebellar CVA and had gait and balance problems. Please see the above diagnoses for further information. - Time Spent with Patient Total time spent providing and/or coordinating discharge services: - Constitutional Vitals: Temp Pulse Resp BP Pulse Ox 97.6 F 82 18 133/86 92 04/13/17 07:11 04/13/17 07:11 04/13/17 07:11 04/13/17 07:11 04/13/17 07:11 General appearance: Present: A&O X 3, pleasant, no acute distress, answers questions appropriately - Respiratory Respiratory exam: Present: CTAB - Cardiovascular Cardiovascular exam: Present: irregular rhythm, +S1, +S2. Absent: systolic murmur - GI/Abdominal GI/Abdominal exam: Present: soft. Absent: tenderness - Extremities Exam Extremities exam: Absent: calf tenderness, pedal edema - Neurological Exam Neurological exam: Present: CN II-XII intact, oriented X3 Additional comments: He ambulates with a walker in the hallway quite well. Today he has good truncal balance. He has good Romberg testing.
[2017-04-13] MEDS: Finasteride 5 MG TABLET PO SCH (08:37)
[2017-04-13] MEDS: APIXABAN 5 MG TABLET PO SCH (08:37)
[2017-04-13 08:40] VITALS: BP 133/86
== END 2017-04-13 12:25 | disposition home or self-care (01) | DRG 57 ==
LOC: INPGRE 16:35 → EDSEX 16:35
PROVIDERS: ADMIT Internal Medicine; ATTEND Internal Medicine